=== PATIENT | male | born 1960 | race Caucasian/White ===

== ENCOUNTER 2023-03-26 14:51 | Emergency (ER) | payer BC ==
[~2023-03-26] VITALS: Ht 170 cm; Wt 81.6 kg
[~2023-03-26 14:51] MED LIST: ALBUTEROL2.5 MG/0.5 INH; ATROVENT HFA12.9 GM INH; AVPAK AZITHROM250 M1 PO; BAYER ASPIRIN C81 MG PO; CALCITRIOL0.5 MCG PO; CETIRIZINE HYDR10 MG PO; MONTELUKAST SOD10 MG PO; PREDNISONE10 MG PO; PRILOSEC20 M1 PO; PROBIOTIC250 MG PO
[2023-03-26] MEDS ORDERED: FLOMAX0.4 MG PO (15:38)
[2023-03-26 17:45] LABS: HEMATOCRIT 45.8 % (42.0-52.0); MEAN CELL VOLUME 88.9 fl (80.0-94.0); MEAN CORPUSCULAR HGB 30.5 pg (27.0-31.0); MEAN CORPUSCULAR HGB CONC 34.3 g/dl (33.0-37.0); PLATELET COUNT AUTOMATED 177 10*3/uL (130-400); RED BLOOD COUNT 5.15 10*6/uL (4.50-5.90); RED CELL DISTRI WIDTH 12.7 % (0-14.5); WHITE BLOOD COUNT 10.4 10*3/uL (4.8-10.8)
[2023-03-26 17:46] LABS: MANUAL DIFF REFLEX YES
[2023-03-26 18:01] LABS: ALKALINE PHOSPHATASE 81 U/L (46-116); BUN 11 mg/dl (9-23); CHLORIDE 104 mmol/L (98-107); SGPT/ALT 16 U/L (5-49); TOTAL PROTEIN 7.3 gm/dL (6.0-8.0)
[2023-03-26 18:10] LABS: PLATELET SUFFICIENCY NORMAL (NORMAL); TOTAL CELLS COUNTED 100 #CELLS
[2023-03-26] MEDS ORDERED: DEXAMETHASONE6 MG PO (18:34)
== END 2023-03-26 21:31 | disposition home or self-care (01) ==
LOC: ED 14:51
PROVIDERS: Emergency Medicine
DX: U07.1 COVID-19 (principal); J45.901 Unspecified asthma with (acute) exacerbation; Z88.8 Allergy status to other drugs, medicaments and biological substances; Z79.899 Other long term (current) drug therapy; Z90.89 Acquired absence of other organs; Z90.49 Acquired absence of other specified parts of digestive tract; Z87.891 Personal history of nicotine dependence